=== PATIENT | female | born 1955 | race Caucasian/White ===

== ENCOUNTER → 2018-01-02 | Outpatient (CLI) | payer OTHER ==
[~2018-01-02] MED LIST: NIACIN OTC PO; Z.2.CALCIUM 600 +1 E PO
--- NOTE | 2018-01-02 11:53 | Diagnostic Imaging Report ---
TECHNIQUE: Magnetic resonance imaging of the right KNEE was performed WITHOUT injected contrast. HISTORY: knee pain COMPARISON: None available. FINDINGS: LIGAMENTS AND TENDONS: ACL: Intact PCL: Intact Collateral ligaments: Intact Iliotibial band: Unremarkable Popliteal tendon: Intact Extensor mechanism: Intact JOINT: Menisci: Medial: Complex tear of the body and posterior horn with dominant horizontal component. Lateral: Degenerative signal at free margin fraying. Articular Cartilage: Medial Compartment: Partial thickness cartilage loss Lateral Compartment: Partial thickness cartilage loss Patellofemoral Compartment: Partial thickness cartilage loss with high-grade fissuring at the medial facet. Joint Fluid: Moderate joint effusion BONE: Subchondral edema at the medial joint line. No acute fracture. SOFT TISSUES: Otherwise, unremarkable. IMPRESSION: 1. Medial meniscus complex tear with subchondral edema at the medial joint line. 2. Tricompartmental partial thickness cartilage loss. Signed by: Dr. Darrius Jackson M.D. on 01/02/2018 11:50 AM
== END ==
LOC: MRI 10:33
PROVIDERS: ATTEND Family Medicine
DX: M23.303 Other meniscus derangements, unspecified medial meniscus, right knee (principal)